=== PATIENT | male | born 1960 | race African-American/Black ===

== ENCOUNTER → 2017-04-23 | Day surgery (SDC) | payer MEDICARE, BC ==
[~2017-04-23] MED LIST: AMLO10TA2 PO; ASPI-482 PO; CALC200T96 PO; CARV3.122 PO; CINA30TA2 PO; CRESTOR20 MG PO; DIPH25CA58 PO; ELBA1TAB; FERR210T PO; FOLI0.8T21 PO; FOLI1CAP10 PO; GUAI600T47 PO; INSU100V13 SQ; IV NORMAL SALINE 1000ML BAG 1,000 ML IV SCH; IV RINGERS,LACTATED 1000ML 1,000 ML IV SCH; LIDOCAINE 1% PF 2 ML VIAL. ID PRN; LIDOCAINE 2% PF Vial for OR 5 ML VIAL. ONE; LOSA50TA6 PO; MELO7.5T29 PO; MIDAZOLAM HCL/PF 2 MG/2 ML VIAL. IV PRN; OXYC-323 PO; PANT40TA5 PO; PROPOFOL 40 ML IV ONE; SEVE800T9 PO; VIT1TABL71 PO; fentaNYL PF VIAL 100 MCG/2 ML VIAL IV PRN
[2017-04-23 13:18] VITALS: BP 154/75
== END | disposition home or self-care (01) ==
LOC: ENDOS 10:16
PROVIDERS: ATTEND Internal Medicine Gastroenterology
DX: Z12.11 Encounter for screening for malignant neoplasm of colon (principal); K64.0 First degree hemorrhoids; K57.30 Diverticulosis of large intestine without perforation or abscess without bleeding; E78.00 Pure hypercholesterolemia, unspecified; J44.9 Chronic obstructive pulmonary disease, unspecified; I12.9 Hypertensive chronic kidney disease with stage 1 through stage 4 chronic kidney disease, or unspecified chronic kidney disease; E11.22 Type 2 diabetes mellitus with diabetic chronic kidney disease; N18.9 Chronic kidney disease, unspecified; F17.200 Nicotine dependence, unspecified, uncomplicated; F32.9 Major depressive disorder, single episode, unspecified; Z72.89 Other problems related to lifestyle; Z86.69 Personal history of other diseases of the nervous system and sense organs; Z86.73 Personal history of transient ischemic attack (TIA), and cerebral infarction without residual deficits
CPT/HCPCS: G0121; J2704; J2001